=== PATIENT | female | born 1980 | race Two or more races ===

== ENCOUNTER → 2019-10-01 | Outpatient (CLI) | payer OTHER | END | disposition home or self-care (01) | LOC: PRENATAL 08:00 | DX: O35.3XX0 Maternal care for (suspected) damage to fetus from viral disease in mother, not applicable or unspecified (principal); O09.522 Supervision of elderly multigravida, second trimester; O34.211 Maternal care for low transverse scar from previous cesarean delivery; Z34.82 Encounter for supervision of other normal pregnancy, second trimester ==

== ENCOUNTER 2020-01-13 12:07 | Inpatient (IN) | payer OTHER ==
[~2020-01-13] VITALS: Ht 152.4 cm; Wt 62.1 kg
[2020-01-20] MEDS ORDERED: PRENATABS FA T1 EACH PO (16:37)
== END 2020-01-29 12:08 | disposition home or self-care (01) | DRG 788 ==
LOC: OB/GYN 01-26 08:30 → O/R 01-26 11:00 → OB/GYN 01-26 11:00
PROVIDERS: ADMIT Obstetrics & Gynecology
PROC: 0UB90ZZ Excision of Uterus, Open Approach (ICD-10-PCS; 2020-01-26)
PROC: 4A1HXCZ Monitoring of Products of Conception, Cardiac Rate, External Approach (ICD-10-PCS; 2020-01-26)
PROC: 10D00Z1 Extraction of Products of Conception, Low, Open Approach (ICD-10-PCS; principal; 2020-01-26 08:30)
DX: O65.5 Obstructed labor due to abnormality of maternal pelvic organs (principal); O34.211 Maternal care for low transverse scar from previous cesarean delivery; O34.13 Maternal care for benign tumor of corpus uteri, third trimester; D25.0 Submucous leiomyoma of uterus; Z3A.38 38 weeks gestation of pregnancy; Z37.0 Single live birth

== ENCOUNTER 2020-03-30 12:02 | Outpatient (CLI) | payer OTHER ==
[~2020-03-30 12:02] MED LIST: PRENATABS FA T1 EACH PO
== END 2020-03-30 12:17 | disposition home or self-care (01) ==
LOC: SONOGRAMA 12:02
DX: N61.0 Mastitis without abscess (principal)